=== PATIENT | male | born 1960 | race Hispanic/Latino ===

== ENCOUNTER 2016-11-02 13:04 | Day surgery (SDC) | payer OTHER ==
[~2016-11-02] VITALS: Ht 170.2 cm; Wt 77.6 kg
[2016-11-02] VITALS (9 sets, daily range): BP systolic 117–142; BP diastolic 66–86; PULSE 59–78; RESP 11–17; O2SAT 95–100
[~2016-11-02 13:04] MED LIST: ALBU2.5V4 INHALATION; ALBU8.5H2 INHALATION; CELE200C PO; FLUT9.9S NS; LANS15TA3 PO
[2016-11-02] MEDS ORDERED: Dexamethasone 4 mg/mL Inj ONE (13:05)
[2016-11-02] MEDS ORDERED: Ondansetron 2 mg/mL 2 mL Inj ONE (13:05)
[2016-11-02] MEDS ORDERED: Bupivacaine-MPF 0.25%/EPI 30 mL Inj ONE (13:05)
[2016-11-02] MEDS ORDERED: Succinylcholine Chloride 20 mg/mL 5 mL Inj ONE (13:05)
[2016-11-02] MEDS ORDERED: Ketamine 10 mg/mL 20 mL Inj ONE (13:05)
[2016-11-02] MEDS ORDERED: Propofol 10,000 mCg/mL 20 mL Inj ONE (13:05)
[2016-11-02] MEDS ORDERED: MetoCLOpramide 5 mg/mL 2 mL Inj ONE (13:05)
[2016-11-02] MEDS: Lactated Ringer's 1,000 ML IV SCH ×2 (13:19→14:11)
[2016-11-02] MEDS ORDERED: ACID REFLUX PILL PO (13:22)
[2016-11-02] MEDS ORDERED: MOME13HF2 IH (13:22)
[2016-11-02] MEDS ORDERED: CeFAZolin 2 Gm/50 mL D5W Duplex Bag IV ONE (13:24)
--- NOTE | 2016-11-02 13:55 | PCM.HPANE ---
Patient Data Surgeon Admitting Provider: Attending Provider:Moshe Choi MD Primary Care Physician:Ever Rios MD Other Provider:Vickey Garnica Anesthesia Reason for Visit Left Rotator Cuff Tear, Impingment Syndrome Ht/WT & BMI Height (Feet): 5 Height (Inches): 7 Weight (Kilograms): 77.6 Body Mass Index 26.00 Allergies Coded Allergies: No Known Allergies (Unverified , 10/28/16) Past Anesthesia History Anesthesia History: Denies:: Anesthesia Reactions, Malignant Hyperthermia Diabetes History Hx Diabetes?: No MRSA MRSA: No Medications Home Meds Incl Beta Júnior: No Reported Medications [Acid Reflux Pill] No Conflict Check20 Mg PO DAILY 11/02/16 Mometasone/Formoterol (Dulera 100 Mcg/5 Mcg Inhaler)13 Gm Hfa.aer.ad2 Puff IH DAILY 11/02/16 Fluticasone Propionate (Flonase Allergy Relief)50 Mcg/Actuation Bone Gap.susp9.9 Ml NS DAILY PRN PRN 10/28/16 Albuterol HFA (Proair HFA)8.5 Gm Hfa.aer.ad2 Puffs INHALATION Q4H PRN prn #1 INHALER 10/28/16 Albuterol Neb Soln 2.5 Mg/3 Ml Vial.neb2.5 Mg INHALATION Q4H PRN For Shortness of Breath Ref 0 10/28/16 Discontinued Reported Medications Lansoprazole ODT (Prevacid ODT)15 Mg Abvnah46 Mg PO DAILY Ref 0 10/28/16 Celecoxib (Celebrex)200 Mg Tjoolan060 Mg PO ONCE #30 CAPSULE Ref 0 10/28/16 History History of ENT Problems?: Yes HEENT History: Positive for:: Sinus Problem (ALLERGIC RHINITIS) Hx of Heart Problems?: Yes Cardiovascular History: Positive for:: Chest Pain (PT REPORTS RELATED TO GERD) Denies:: Heart Murmur Hypertension Hx of Respiratory Problem?: Yes Respiratory History: Positive for:: Asthma Use of Inhalers / NEBS Denies:: Use of C-PAP Machine Hx Neurologic Problems?: No Hx of GI Problems?: Yes Gastrointestinal History: Positive for:: Gastroesphageal Reflux Hx of Problems?: No Male Hx: Denies:: Prostate Problems Scrotal Mass Testicular Surgery Skin History: Denies:: History Skin Disorders? Pressure Ulcers Hx Musculoskeletal Problems?: Yes Musculoskeletal History: Positive for:: Musculoskeletal Trauma (S/P B/L ARTHROCENTESIS KNEES) Hx of Psycho/Social Problems?: No Hx Surgeries?: Yes (B/L KNEE ARTHROCENTESES) Hx Any Other Health Problems?: Yes Other History: Denies:: Cancer Endocrine Disease Hospitalization Thyroid Disease History Blood Transfusions: Denies:: Blood Transfusions Hx Diabetes: No Other Pertinent History: HX VITAMIN D DEFICIENCY Stop/Bang Treated for Sleep Apnea?: No Do You Have a CPAP Machine?: No S-Snoring: Do You Snore Loudly: No T-Tired: feel tired, fatigued: No O-Obsered: Observed not breath: No P-Blood Pressure: treated: No B- Body Mass Index > 35 kg/m2: No A- Age over 50: Yes N- Neck Large Circumference: No G- Gender Male: Yes PRATIBHA Total Score: 2 PRATIBHA Risk Assessment: Low Risk, <3 Yes Risk Assessment Category Category 1A: Patient has history of documented sleep apnea, and HAS NOT received any narcotic, sedative or anesthesia administration during this stay. Category 1B: Patient has history of documented sleep apnea, and HAS received any narcotic , sedative or anesthesia administration during this stay Category 2: Patient has SUSPECTED Obstructive Sleep Apnea, and HAS received any narcotic , sedative or anesthesia administration during this stay. Category 3: Patient has SUSPECTED Obstructive Sleep Apnea and HAS NOT received narcotic, sedative or anesthesia administration during this stay. Category 4: Outpatient in Procedural Areas with known sleep apnea or who screen positive for High Risk via the STOP/BANG questionnaire. Exam Exam Vital Signs Vital Signs Date Time Temp Pulse Resp B/P Pulse Ox O2 Delivery O2 Flow Rate FiO2 11/02/16 13:29 36.3 59 17 117/72 95 Room Air General Appearance: Oriented X3 HEENT/AIRWAY: MP 2 Lungs: Clear to Auscultation, Normal Air Movement Heart: Regular Rate/Rhythm Meds/Labs/Diagnostics Admission Meds Current Medications Lactated Ringer's (Lr) 1,000 ml @ 120 mls/hr Q8H20M IV Last administered on t 13:19; Start 11/02/16 at 05:00; Stop 11/02/16 at 13:19; Status DC Plan Impression Patient chart reviewed, patient interviewed and anesthestic plan with risks, benefits, and alternatives discussed, and informed consent obtained. NPO Status: 11/01/16 ASA Physical Status: ASA2 Mod Systemic Disease Anesthetic Plan: GA, Regional Block Bene/Risks/Altern/Consents: Yes HP Complete Prior to Induction: Yes Raj Rivera MD Nov 02, 2016 13:54
[2016-11-02] MEDS ORDERED: Lactated Ringer's 500 ML IV PRN (14:33)
[2016-11-02] MEDS ORDERED: Lactated Ringer's 1,000 ML IV SCH (14:33)
[2016-11-02] MEDS ORDERED: Ondansetron 2 mg/mL 2 mL Inj IVPUSH PRN (14:35)
[2016-11-02] MEDS ORDERED: MetoCLOpramide 5 mg/mL 2 mL Inj IVPUSH PRN (14:35)
[2016-11-02] MEDS ORDERED: Phenylephrine 10,000 mCg/mL Inj IVPUSH PRN (14:35)
[2016-11-02] MEDS ORDERED: EPHEDrine Sulfate 50 mg/mL Inj IVPUSH PRN (14:35)
[2016-11-02] MEDS ORDERED: HYDROmorphone 1 mg/mL Inj IVPUSH PRN (14:35)
[2016-11-02] MEDS ORDERED: Dexamethasone 4 mg/mL Inj IVPUSH PRN (14:35)
[2016-11-02] MEDS ORDERED: fentaNYL-PF 50 mCg/mL 2 mL Inj IVPUSH PRN (14:35)
[2016-11-02] MEDS ORDERED: Ketorolac 15 mg/mL Inj IVPUSH ONE (16:15)
[2016-11-02] MEDS ORDERED: HYDROcodone-APAP 5-325 mg Tablet PO PRN (16:15)
--- NOTE | 2016-11-02 16:15 | PCM.ORTHOP ---
Orthopedic Operative Report Date of Service: Nov 02, 2016 Pre Operative Diagnosis left shoulder rotator cuff tear, biceps tendinitis, subacromial impingement, acromioclavicular joint arthritis Post Operative Diagnosis same Procedure Left shoulder arthroscopy, rotator cuff repair, subacromial decompression, biceps tenodesis, distal clavicle excision, partial synovectomy Surgeon Surgeon: Moshe Choi MD Assistants: Pan Shea Indication for Procedure Left shoulder rotator cuff tear, Findings Left shoulder full-thickness rotator cuff tear, 2 cm x 2 cm, A2B3C2, biceps tendinitis, subacromial spur, acromioclavicular joint arthritis Details of Procedure ASSOCIATE ACCOUNTANT SURGEON: During the operation, the services of physician senior office support assistant sosa were medically indicated and necessary to provide exposure of the operative site for the surgical procedure and to maintain the limb in a proper position to carry out the operation safely and efficiently. Without the qualified program services assistant being present, it would have extended the operative procedure and made the procedure technically more difficult to perform. INDICATIONS: The patient is Vance Gold who is a 56-year-old male male with left shoulder rotator cuff tear. The risks, benefits, and alternatives of surgery were discussed with the patient. The risks included but were not limited to infection, bleeding, damage to vessels and nerves, loss of motion, continued pain, complications due to anesthesia including myocardial infarction, stroke, , etc. The patient stated understanding of the nature of the surgical procedure and gave written and verbal consent to proceed. PROCEDURE: The patient was brought into the operating room and placed supine on the operating room table. An interscalene block was placed in the left shoulder for postoperative pain management, followed by the administration of general anesthesia. . The patient was then placed into the lateral decubitus position with the right side up. An axillary role was placed and the legs were padded as necessary to avoid pressure points. The patient was maintained in position with a beanbag evacuation device. A thorough examination of the left shoulder under anesthesia was performed. The patient had 120 degrees of forward elevation and 110 degrees of abduction. In 90 degrees of abduction there was 35 degrees of external and internal rotation. The shoulder was stable to load-shift testing. The left upper extremity was then prepped and draped in the usual fashion. The arm was suspended with a well-padded sleeve with eight/ten pounds of balanced suspension in the arthroscopic position. A standard posterior portal was made inferior and medial to the posterior corner of the acromion. The incision was made only through skin. The trocar was advanced through the soft tissue with a blunt-tipped obturator. This was inserted into the glenohumeral joint without difficulty. The 4 mm arthroscope was placed through the cannula and attached to the video monitor system. Inflow was achieved using the arthroscopic pump. The pressure was maintained at 35-40 mm of mercury throughout the entire procedure. Once the arthroscope confirmed visualization within the shoulder joint, it was advanced anteriorly into the rotator interval beneath the biceps tendon. A Wissinger isaias was then used to create the anterior portal from inside-out. A second anterior stab wound incision was made only through skin and an anterior cannula was placed. A routine arthroscopic survey was begun. Survey: 2 cm x 2 cm full-thickness A2 B3 C2 rotator cuff tear, biceps tendinitis , 3 mm subacromial spur, acromioclavicular joint arthritis, degenerative labral tearing A biceps tenotomy was performed a PDS was used to maintain tension prior to tenotomy. The biceps was tenodesed to the suture anchor anteriorly with the anterior limb of the RTC suture. Doug procedure: Within the subacromial space there was marked fraying on the undersurface of the coracoacromial ligament consistent with impingement. A decision was thus made to proceed with arthroscopic subacromial decompression. Using an RF wand and a motorized shaver the coracoacromial ligament was recessed from the anterior acromial edge. An orientation trough was made along the lateral margin of the acromion, from the anterior corner back to the posterior margin of the AC joint. A sequential subacromial smoothing was carried out, removing approximately 5 mm of bone corresponding to the preoperative radiographs. Once completed, the AC joint capsule was opened. There was inferior spurring as well as synovitis and arthritic changes at the AC joint and a decision was made to proceed with distal clavicle excision. Using a motorized bur working initially from posteriorly and then anteriorly, the outer 10 mm of the distal clavicle were excised. The arthroscope was then positioned anteriorly within the AC resection site confirming an excellent level of resection. Single anchor supraspinatus repair Attention was then directed to the rotator cuff repair. Using the motorized shaver from both the anterolateral portal and the posterior portal, the free edge of rotator cuff was debrided. The anatomic neck of the tuberosity was then gently abraded, using the motorized shaver and exposing good bone for healing. Via an accessory anterolateral portal, a triple-loaded anchor was inserted, with excellent fixation purchase. The three stitches were then transported across the rotator cuff using a shuttling technique, spacing the sutures equidistantly. Once the sutures were all passed, they were sequentially tied, using SMC knots and alternating half-hitches, which gave excellent loop and knot security. This reduced the rotator cuff back to the anatomic neck. A microfracture was then performed laterally on the tuberosity creating a crimson duvet to aid in tendon healing. The arm was placed through range of motion and the rotator cuff and humeral head moved well as a unit. There was no further evidence for impingement. The subacromial space was irrigated with an additional 500 mL lactated Ringer solution. Excess fluid was drained. 6 biceps tenotomy was performed in the glenohumeral joint and the resting tension was tight with PDS suture. The rotator cuff was incorporated into the biceps tenodesis. The arm was placed through a range of motion and the rotator cuff and humeral head moved well as a unit. There was no further evidence of impingement. The subacromial space was irrigated with an additional liter of lactated Ringer s solution and excess fluid was drained. The arthroscopic portals were closed with #4-0 Nylon and Steri-Strips. A dry sterile dressing was applied, followed by a neutral rotation sling. The patient was awakened in the operating room and transported to the recovery room in satisfactory condition. The patient appeared to tolerate the procedure well. There were no complications noted. Grafts, Implants: Implants-See Implant Record Complications There were no periprocedural complications identified. Condition Stable Anesthetic Administered: GA Catheters: None Output, Estimated Blood Loss: 5 Blood Admin during surgery: No Surgical Cast or Splint: Shoulder Immobilizer Surgical Specimen Removed: No Specimen sent to Pathology: No copies to: Moshe Choi MD, Christopher L MD Nov 02, 2016 16:15
--- NOTE | 2016-11-02 16:33 | PCM.ANEP1 ---
Post Anesthesia Phase 1 PACU Phase 1 Assessment Date of Service: Nov 02, 2016 Vital Signs Vital Signs Date Time Temp Pulse Resp B/P Pulse Ox O2 Delivery O2 Flow Rate FiO2 11/02/16 16:23 36.0 78 16 138/86 99 Simple Mask 8 11/02/16 13:29 36.3 59 17 117/72 95 Room Air Anesthetic Administered: GA, Regional Block Level of Alertness: Awake, talking Pain: No Nausea or Vomiting: No Airway Device: Oralpharangeal Airway Lungs: Clear to Auscultation, Normal Air Movement Raj Rivera MD Nov 02, 2016 16:33
--- NOTE | 2016-11-02 16:33 | PCM.ANEP2 ---
Post Anesthesia Evaluation ASA/CMS Post Anesthesia VS in Patient's Normal Range?: Yes Resp Stable; Airway Patent?: Yes CV Function & Hydration Stable: Yes Mental Status Recovered?: Yes Pain control Satisfactory?: Yes N/V Control Satisfactory?: Yes Raj Rivera MD Nov 02, 2016 16:33
== END 2016-11-02 23:59 | disposition home or self-care (01) ==
LOC: SAS 13:04
PROVIDERS: ATTEND Orthopaedic Surgery
DX: M75.122 Complete rotator cuff tear or rupture of left shoulder, not specified as traumatic (principal); M75.22 Bicipital tendinitis, left shoulder; M19.012 Primary osteoarthritis, left shoulder; M75.42 Impingement syndrome of left shoulder; K21.9 Gastro-esophageal reflux disease without esophagitis; E55.9 Vitamin D deficiency, unspecified; M72.2 Plantar fascial fibromatosis; J45.909 Unspecified asthma, uncomplicated; Z79.51 Long term (current) use of inhaled steroids
CPT/HCPCS: 23430; 29824; 29826; 29827; 76942; C1713; J0330; J0690; J1100; J1885; J2405; J2765; J7120

== ENCOUNTER → 2017-04-18 | Day surgery (SDC) | payer OTHER ==
[~2017-04-18] VITALS: Ht 170.2 cm; Wt 75.2 kg
[2017-04-18] VITALS (13 sets, daily range): BP systolic 107–134; BP diastolic 59–70; PULSE 52–82; RESP 10–17; O2SAT 94–100
[~2017-04-18] MED LIST changes: +Bupivacaine-MPF 0.5% 30 mL Inj INFILTRATE ONE; +Dexamethasone 4 mg/mL Inj IVPUSH PRN; +Dexamethasone 4 mg/mL Inj ONE; +EPHEDrine Sulfate 50 mg/mL Inj IVPUSH PRN; +Glycopyrrolate 0.2 MG/ML 1mL Inj ONE; +HYDROmorphone 1 mg/mL Inj IVPUSH PRN; -LANS15TA3 PO; +LANS30CA14 PO; +Lactated Ringer's 1,000 ML IV SCH; +Lactated Ringer's 500 ML IV PRN; +MetoCLOpramide 5 mg/mL 2 mL Inj IVPUSH PRN; +MetoCLOpramide 5 mg/mL 2 mL Inj ONE; +Neostigmine 1 mg/mL 10 mL Inj ONE; +OXYC5CAP4 PO; +OXYC5TAB72 PO; +Ondansetron 2 mg/mL 2 mL Inj IVPUSH PRN; +Ondansetron 2 mg/mL 2 mL Inj ONE; +POLY17PO6 PO; +Phenylephrine 10,000 mCg/mL Inj IVPUSH PRN; +Polyethylene Glycol (PEG) 17 Gm Powder PO SCH; +Propofol 10,000 mCg/mL 20 mL Inj ONE; +Rocuronium 10 mg/mL 5 mL Inj ONE; +fentaNYL-PF 50 mCg/mL 2 mL Inj ONE; +levoFLOXacin Inj 500 MG in IV Premix 1 EACH IV SCH
[2017-04-18] MEDS: Lactated Ringer's 1,000 ML IV SCH ×2 (05:43→10:03)
[2017-04-18 09:13] LABS: Bilirubin, Direct 0.2 mg/dL (0.0-0.3)
--- NOTE | 2017-04-18 12:34 | PCM.SURGPO ---
Immediate Operative Note Date of Surgery: Apr 18, 2017 Pre Operative Diagnosis Cholelithiasis Post Operative Diagnosis Cholelithiasis Procedure Lap Cholecystectomy with cholangiogram Surgeon and Payment Specialist Surgeon: Bettina Gomez MD Assistants: Jose A Hammonds, PAC Findings Some spillage, Normal cholangiogram Complications There were no periprocedural complications identified. Surgical Specimen Removed: Yes Specimen sent to Pathology: Yes Anesthetic Administered: GA Grafts, Implants: None Output, Estimated Blood Loss: 5 Blood Admin during surgery: No Attending Statement Osteopathic Physician listed was medically necessary for the successful completion of the case Bettina Gomez MD Apr 18, 2017 12:34
[2017-04-18] MEDS: fentaNYL-PF 50 mCg/mL 2 mL Inj IVPUSH PRN ×2 (12:55→13:08)
--- NOTE | 2017-04-18 12:59 | PCM.HPANE ---
Patient Data Surgeon Admitting Provider: Attending Provider:Bettina Gomez MD Primary Care Physician:Ever Rios MD Other Provider:Vickey Garnica Anesthesia Reason for Visit Cholecystitis Ht/WT & BMI Height (Feet): 5 Height (Inches): 7 Weight (Kilograms): 79.82 Body Mass Index 27.00 Allergies Coded Allergies: No Known Allergies (Unverified , 10/28/16) Past Anesthesia History Anesthesia History: Denies:: Abnormal Airway, Anesthesia Reactions, Difficult Intubation, Fam Anesthesia Reaction, Fam Malignant Hypertherm, Malignant Hyperthermia Diabetes History Hx Diabetes?: No MRSA MRSA: No Medications Hypertension Medication: No Home Meds Incl Beta Júnior: No Active Scripts oxyCODONE 5 Mg Tablet5 Mg PO Q12 PRN For Moderate Pain #14 TABLET Prov:Bettina Gomez MD 04/18/17 Polyethylene Glycol 3350 (Miralax)17 Gm Powd.pack17 Gm PO DAILY #30 DOSE Prov:Bettina Gomez MD 04/18/17 Reported Medications oxyCODONE 5 Mg Capsule5 Mg PO Q4H PRN For Pain Ref 0 04/11/17 Celecoxib (Celebrex)200 Mg Tloduzj139 Mg PO DAILY #30 CAPSULE Ref 0 04/11/17 Fluticasone Propionate (Flonase Allergy Relief)50 Mcg/Actuation Crooks.susp9.9 Ml NS DAILY PRN PRN 10/28/16 Albuterol HFA (Proair HFA)8.5 Gm Hfa.aer.ad2 Puffs INHALATION Q4H PRN prn #1 INHALER 10/28/16 Albuterol Neb Soln 2.5 Mg/3 Ml Vial.neb2.5 Mg INHALATION Q4H PRN For Shortness of Breath Ref 0 10/28/16 Discontinued Reported Medications Lansoprazole DR (Prevacid)30 Mg Qmgcctz46 Mg PO DAILY Ref 0 04/11/17 [Acid Reflux Pill] No Conflict Check20 Mg PO DAILY 11/02/16 Mometasone/Formoterol (Dulera 100 Mcg/5 Mcg Inhaler)13 Gm Hfa.aer.ad2 Puff IH DAILY 11/02/16 History History of ENT Problems?: Yes HEENT History: Positive for:: Sinus Problem (ALLERGIC RHINITIS) Denies:: Abnormal Airway Cataracts Difficult Intubation Dysphagia Glaucoma Hearing Problem TMJ Denture Type: None Teeth Condition: Within Normal Limits Hx of Heart Problems?: Yes Cardiovascular History: Denies:: AICD Abdominal Aortic Aneurism Atrial Fibrillation Cardiac Surgery Chest Pain Congestive Heart Failure Coronary Artery Disease Edema Heart Murmur Hypertension Pacemaker Peripheral Vascular Rheumatic Fever Thrombophlebitis Valvular Heart Disease Hx of Respiratory Problem?: Yes Respiratory History: Positive for:: Asthma Use of Inhalers / NEBS (Albuterol BID) Denies:: COPD Chest Surgery Cough Dyspnea Emphysema Hemoptysis Oxygen Administration Pneumonia Pulmonary Embolism Tuberculosis Use of C-PAP Machine Hx Neurologic Problems?: No Hx of GI Problems?: Yes Hx of Problems?: No Genitourinary History: Denies:: HX of Hemodialysis Kidney Stones Urinary Tract Infection HX of Peritoneal Dialysis: No Male Hx: Denies:: Prostate Problems Scrotal Mass Testicular Surgery Skin History: Denies:: History Skin Disorders? Pressure Ulcers Hx Musculoskeletal Problems?: Yes Musculoskeletal History: Positive for:: Back Injury (2003 after lifting a heavy object) Denies:: Degenerative Joint Fibromyalgia Joint Replacement Musculoskeletal Trauma Myasthenia Gravis Osteoarthritis Rheumatoid Arthritis Systemic Lupus Hx of Psycho/Social Problems?: No Hx Surgeries?: Yes (lt shoulder surgery) Hx Any Other Health Problems?: Yes Other History: Positive for:: Hospitalization (Nov 2016) Denies:: Cancer Endocrine Disease Thyroid Disease History Blood Transfusions: Positive for:: Accept Blood Products? Denies:: Blood Transfusions Hx Diabetes: No Hx Alcohol Use: YesAlcoholic Drinks Per Day: 1-2 a dayHx Substance Use: No Stop/Bang S-Snoring: Do You Snore Loudly: No T-Tired: feel tired, fatigued: No O-Obsered: Observed not breath: No P-Blood Pressure: treated: No B- Body Mass Index > 35 kg/m2: No A- Age over 50: Yes N- Neck Large Circumference: No G- Gender Male: Yes PRATIBHA Total Score: 2 Risk Assessment Category Category 1A: Patient has history of documented sleep apnea, and HAS NOT received any narcotic, sedative or anesthesia administration during this stay. Category 1B: Patient has history of documented sleep apnea, and HAS received any narcotic , sedative or anesthesia administration during this stay Category 2: Patient has SUSPECTED Obstructive Sleep Apnea, and HAS received any narcotic , sedative or anesthesia administration during this stay. Category 3: Patient has SUSPECTED Obstructive Sleep Apnea and HAS NOT received narcotic, sedative or anesthesia administration during this stay. Category 4: Outpatient in Procedural Areas with known sleep apnea or who screen positive for High Risk via the STOP/BANG questionnaire. Exam Exam General Appearance: Alert, Oriented X3, Cooperative, No Acute Distress HEENT/AIRWAY: MP 2 Lungs: Clear to Auscultation Heart: Exam Unremarkable Meds/Labs/Diagnostics Admission Meds Current Medications Lactated Ringer's (Lr) 1,000 ml @ 120 mls/hr Q8H20M IV Last administered on t 05:43; Start 04/18/17 at 05:00; Stop 04/18/17 at 13:19 Plan Impression Patient chart reviewed, patient interviewed and anesthestic plan with risks, benefits, and alternatives discussed, and informed consent obtained. ASA Physical Status: ASA3 Severe Disease Anesthetic Plan: GA Bene/Risks/Altern/Consents: Yes HP Complete Prior to Induction: Yes Isiah Goodson MD Apr 18, 2017 08:02
--- NOTE | 2017-04-18 13:02 | PCM.ANEP1 ---
Post Anesthesia PACU Phase 1 Assessment Vital Signs Vital Signs Date Time Temp Pulse Resp B/P Pulse Ox O2 Delivery O2 Flow Rate FiO2 04/18/17 12:52 56 12 118/59 96 Room Air 04/18/17 12:45 54 13 121/67 100 Simple Mask 10 04/18/17 12:40 52 12 131/66 100 Simple Mask 10 04/18/17 12:35 52 12 131/68 100 Simple Mask 10 04/18/17 12:31 56 14 134/64 100 Simple Mask 10 04/18/17 12:25 36.9 55 17 130/69 99 Simple Mask 10 04/18/17 08:46 36.6 64 16 116/70 97 Room Air Anesthetic Administered: GA Level of Alertness: Sleepy, easy to arouse Pain: No Nausea or Vomiting: No CV Function & Hydration Stable: Yes Airway Device: Oxygen Delivery: Simple Mask Lungs: Clear to Auscultation Dermatome Level: Full Sensation PACU Phase 2 Assessment Complications: No Patient Instructions Provided: N/A Isiah Goodson MD Apr 18, 2017 13:02
--- NOTE | 2017-04-18 14:40 | OP ---
[address] [address] OPERATIVE REPORT PATIENT: SOSA POTTS : 1960 MR#: [id number] ADMIT: 04/18/2017 JOB ID: [id number] DATE OF SURGERY: 04/18/2017 PREOPERATIVE DIAGNOSIS(ES): Cholelithiasis. POSTOPERATIVE DIAGNOSIS(ES): Cholelithiasis. PROCEDURE PERFORMED: Laparoscopic cholecystectomy with cholangiogram. SURGEON: Bettina Gomez M.D. KNEE BOLTER: Jose A Hammonds PA-C and Shakila Oconnor D.O. INDICATIONS: The patient is a 56-year-old gentleman who has had intermittent upper abdominal discomfort over the years attributed to reflux. He did not have any burning sensation in his chest. He presented to me on March 24, 2017 after severe abdominal pain made him go to Urgent Care the weekend before. When he was evaluated with ultrasound, he was shown to have multiple gallstones with no common bile duct dilation but he had significant liver function test abnormalities. After discussed the risks, benefits, and alternatives, he is here today for laparoscopic cholecystectomy with cholangiogram. Preoperative liver function studies checked on the day of the operation were normal. PROCEDURE DETAILS: He was placed in the supine position. Underwent smooth induction of general anesthesia. Abdomen was prepped and draped in the usual sterile fashion. Surgical time-out was undertaken using safety checklist, and all were in agreement. We began by making an infraumbilical incision and entered the abdomen using an open Dannie technique and Optiview trocar. I first went in with a 5 mm port and then upsized to a 10 mm and then placed three 5 mm ports, one in the epigastrium and two in the right upper quadrant. We then retracted the gallbladder cephalad and laterally and incised the peritoneum over the triangle of Calot anteriorly and posteriorly. While I was dissecting the cystic artery free from the gallbladder, I did make an inadvertent cholecystotomy and there was some spillage of bile and stones. I controlled the cystic artery with a clip and then dissected the cystic duct free and then clipped it on the specimen side. Then made a ductotomy and obtained a cholangiogram which showed normal anatomy with no filling defects. I then clipped the cystic duct doubly on the patient's side and divided the cystic duct. I then dissected the rest of the gallbladder off the liver bed with good hemostasis, placed it in an EndoCatch bag. I then removed all the stones and debris from the right upper quadrant and suctioned and irrigated and suctioned back all the residual blood and debris. After that, we removed the gallbladder through the umbilical port site. The umbilical port fascia was closed with [id number] 0-Vicryl suture. The skin was reapproximated with 4-0 Monocryl. Steri-Strips and a sterile dressing were applied. The patient was recovered from anesthesia and was taken to the recovery room in stable condition.
--- NOTE | 2017-04-18 15:29 | DRSVH ---
PROCEDURE: X-RAY OPERATIVE CHOLANGIOGRAM ([id number]) INDICATIONS: CHOLECYSTITIS COMPARISON: US [place], US ABDOMEN, 03/20/2017, 10:56. FINDINGS: Biliary ducts: The surgeon injected contrast into the biliary ducts after cannulation of the cystic duct stump. Visualized intra- and extrahepatic bile ducts are normal in caliber, without strictures. No intraluminal filling defects to suggest retained ductal stones or sludge. No evidence for iatro genic ductal injury. Duodenum: Contrast flows promptly through the sphincter of Oddi into the duodenum, which appears nor mal in caliber. IMPRESSION: 1. No evidence of retained common duct stones. Dictated by: Ned Celestin M.D. on 04/18/2017 at 15:26 Approved by: Ned Celestin M.D. on 04/18/2017 at 15:27
--- NOTE | 2017-04-19 13:26 | PATH ---
SURGICAL PATHOLOGY Attending Physician:Bettina Gomez MD CASE STATUS: Signed Out PATIENT NAME: SOSA POTTS PID: [id number] : 1960 DATE COLLECTED:04/18/2017 19:41 SPECIMEN: Gallbladder CLINICAL HISTORY: 1). GALLBLADDER FINAL DIAGNOSIS: 1.GALLBLADDER: CHOLELITHIASIS WITH ASSOCIATED CHRONIC CHOLECYSTITIS. ICD10 K80.66 GROSS DESCRIPTION: The specimen is received in one formalin filled container labeled with the patient's name, sublabeled "gallbladder" and consists of an opened 6.5 x 2.5 x 2.0 CM gallbladder. The serosa is smooth. The wall is 0.2-0.4 CM in thickness. The mucosa is a dark green bravo in color. The lumen contains a yellow green friable material and approximately 30+ fragments of yellow-bravo fragmented calculi which range in size from 0.1-1.0 CM. 5 sales and merchandising representative sections are submitted in one cassette. 04/18/2017DC MICRO DESCRIPTION: See diagnosis. ICD-9 CODES: CPT CODES: 1: 84413 Electronically Signed Out Dhaval Garcia MD [facility] [address], [place] [address] Technical component performed at [facility], [address] [place] [address] Ave[address], [place], [address]
== END | disposition home or self-care (01) ==
LOC: SAS 08:09
PROVIDERS: ATTEND Student in an Organized Health Care Education/Training Program
DX: K80.10 Calculus of gallbladder with chronic cholecystitis without obstruction (principal); J45.909 Unspecified asthma, uncomplicated; Z79.899 Other long term (current) drug therapy; Z87.891 Personal history of nicotine dependence
CPT/HCPCS: 36415; 47563; 74300; 80076; 82150; 83690; C1713; J1100; J1885; J2250; J2405; J2710; J2765; J3010; J7120; Q9967